=== PATIENT | male | born 1965 | race Two or more races ===

== ENCOUNTER 2022-07-06 10:22 | Outpatient (CLI) | payer OTHER | END 2022-07-06 10:23 | disposition home or self-care (01) | LOC: BICRAD 10:22 | PROVIDERS: ATTEND Chiropractor | DX: M19.071 Primary osteoarthritis, right ankle and foot (principal); M19.072 Primary osteoarthritis, left ankle and foot ==

== ENCOUNTER 2022-07-13 10:39 | Outpatient (CLI) | payer OTHER | END 2022-07-13 10:40 | disposition home or self-care (01) | LOC: BICRAD 10:39 | PROVIDERS: ATTEND Chiropractor | DX: M19.012 Primary osteoarthritis, left shoulder (principal); M25.811 Other specified joint disorders, right shoulder; M25.812 Other specified joint disorders, left shoulder ==

== ENCOUNTER 2023-12-28 13:00 | Outpatient (CLI) | payer OTHER | END 2023-12-28 13:01 | disposition home or self-care (01) | LOC: BICULT 13:00 | DX: R42 Dizziness and giddiness (principal) | CPT/HCPCS: 93880 ==